=== PATIENT | female | born 1975 | race Caucasian/White ===

== ENCOUNTER 2020-06-07 18:52 | Emergency (ER) | payer MEDICAID ==
[~2020-06-07] VITALS: Ht 165.1 cm; Wt 127.7 kg
[2020-06-07 19:34] LABS: COLOR,URINE YELLOW (Yellow); GLUCOSE, URINE NEGATIVE (Neg); KETONES,URINE NEGATIVE (Neg); LEUKOCYTE ESTERASE ,URINE SMALL (Neg); NITRITES, URINE NEGATIVE (Neg); OCCULT BLOOD,URINE LARGE (Neg); PROTEIN,URINE NEGATIVE (Neg); UROBILINOGEN,URINE 0.2 E.U/dL (0.2-1.0)
--- NOTE | 2020-06-07 19:35 | NUR ---
PT GIVEN WATER TO FILL BLADDER FOR ULTRASOUND IF NEEDED AFTER BLOOD WORK COMPLETED.
[2020-06-07 19:37] VITALS: BP 147/91
[2020-06-07 19:45] LABS: BACTERIA,URINE FEW /HPF (Neg); CLARITY,URINE SLIGHTLY CLOUDY (Clear); RBC,URINE 20-50 /HPF (0-2); SQUAMOUS EPITHELIAL CELL,UR FEW /LPF (FEW); UA COLLECTION TYPE CLN CATCH MIDSTREAM; WBC,URINE 0-4 /HPF (0-4)
[2020-06-07 19:49] LABS: BASOPHILS # (AUTO) 0.1 X10'3 (0-0.2); BASOPHILS % (AUTO) 0.5 % (0-1); EOSINOPHILS # (AUTO) 0.2 X10'3 (0-0.9); HEMATOCRIT 29.9 % (35.0-45.0); HEMOGLOBIN 9.4 g/dl (12.0-16.0); LYMPHOCYTES # (AUTO) 1.6 X10'3 (1.1-4.8); LYMPHOCYTES % (AUTO) 14.5 % (21-51); MEAN CORPUSCULAR HEMOGLOBIN 22.2 PG (27.0-31.0); MEAN CORPUSCULAR HGB CONC 31.4 g/dL (33.0-36.5); MEAN CORPUSCULAR VOLUME 70.9 FL (78-98); MEAN PLATELET VOLUME 8.2 FL (7.4-10.4); MONOCYTES # (AUTO) 1.1 X10'3 (0-0.9); MONOCYTES % (AUTO) 10.1 % (2-12); NEUTROPHILS # (AUTO) 7.8 X10'3 (1.8-7.7); NEUTROPHILS % (AUTO) 72.9 % (42-75); PLATELET COUNT 261 X10'3 (140-440); RED BLOOD COUNT 4.22 X10'6 (4.20-5.60); RED CELL DISTRIBUTION WIDTH 16.5 % (11.5-14.5); WHITE BLOOD COUNT 10.7 X10'3 (4.5-11.0)
[2020-06-07 20:01] LABS: ALANINE AMINOTRANSFERASE 20 U/L (12-78); ALBUMIN 3.3 G/DL (3.4-5.0); ALBUMIN/GLOBULIN RATIO 0.8 (1.1-1.5); ALKALINE PHOSPHATASE 48 IU/L (46-116); ANION GAP 6 (8-16); ASPARTATE AMINO TRANSFERASE 9 U/L (10-37); BILIRUBIN,TOTAL 0.3 MG/DL (0.1-1.0); BLOOD UREA NITROGEN 7 MG/DL (7-18); BUN/CREATININE RATIO 8.8 (6.6-38.0); CALCIUM 8.4 MG/DL (8.5-10.1); CHLORIDE 106 MMOL/L (99-107); GLUCOSE 120 MG/DL (70-104); POTASSIUM 3.3 MMOL/L (3.5-5.1); SODIUM 140 MMOL/L (135-145); TOTAL CARBON DIOXIDE 28.1 MMOL/L (24-32); TOTAL PROTEIN 7.6 G/DL (6.4-8.2); eGFR 78 ML/MIN
[2020-06-07 20:05] LABS: BETA HCG,QUANTITATIVE < 1.0 mIU/ml
--- NOTE | 2020-06-07 20:28 | NUR ---
I WAS ADVISED BY THE TECH THAT THE PATIENT WANTED TO SPEAK TO ME. THE PATIENT VOICED CONCERN OVER THE WAY SHE WAS TALKED TO BY THE DOCTOR. SHE IS ALSO UPSET BECAUSE "WE MADE HER DRINK ALL THIS WATER TO HAVE AN ULTRASOUND AND NOW WE ARE CANCELLING IT" I EXPLAINED TO HER THAT THE ULTRASOUND WAS ORDERED BECAUSE SHE WAS BELIEVED TO BE AND AFTER RUNNING HER BLOOD TESTS WE DETERMINED THAT SHE WAS NOT INDEED . PT BELIVES THAT SHE IS AND STATES "IT RUNS IN MY FAMILY THAT WE DON'T ALWAYS SHOW IT ON THE TESTS" ALSO STATES, "I WANT TO MAKE SURE THIS IS NOT AN ECTOPIC" - TRIED TO EDUCATED PT ON THE FACT THAT REGARDLESS OF WHERE THE IS (FALLOPIAN TUBE OR UTERUS) THAT HER BETA HCG WOULD BE HAVE A NUMERICAL VALUE AND HERS WAS NOT REGISTERING ANYTHING. SHE IS STILL NOT SATISFIED WITH MY ANSWER AND STATES, "I AM NOT STUPID PEOPLE HAVE HAD ECTOPICS AND SHOWN NEGATIVE ON THE BLOODWORK TEST". I ADVISED HER THAT I NEVER SAID SHE WAS STUPID AND THAT I WAS SIMPLY TRYING TO LET HER KNOW THAT SHE IS NOT BASED OFF OUR TEST. 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 ASKED PT IF SHE WAS GOING TO STAY TO BE DISCHARGED AND SHE SAID THERE WAS NO REASON TO STAY BECAUSE WE WEREN'T GOING TO DO AN ULTRASOUND AND SHE THEN LEFT WITHOUT HER D\\C PAPERWORK.
--- NOTE | 2020-06-07 20:29 | NUR ---
Blood work indicates pt is not at this time. MD notified patient of results. Pt was not satisfied with MD diagnosis and left before signing paperwork or receiving discharge paperwork.
[2020-06-08] MEDS ORDERED: iohexol 350MG/ML 100ml bottle IV ONE (00:34)
== END 2020-06-07 20:35 | disposition left against medical advice (07) ==
LOC: ER 18:54
DX: R10.32 Left lower quadrant pain (principal); Z88.8 Allergy status to other drugs, medicaments and biological substances
CPT/HCPCS: 36415; 80053; 81001; 84702; 85025; 87088; 99283; Q9967